=== PATIENT | female | born 1985 | race Caucasian/White ===

== ENCOUNTER 2017-01-21 23:02 | Emergency (ER) | payer MEDICAID ==
[2017-01-21 23:02] VITALS: BMI 39.9
[2017-01-21 23:27] VITALS: BP 149/90; PULSE 82; RESP 16; TEMP 97.7; O2SAT 97
[2017-01-22 00:26] LABS: RBC URINE 12 /hpf (0-3); URINE BACTERIA RARE (<OCC); URINE BILIRUBIN NEGATIVE (NEGATIVE); URINE BLOOD 1+ (NEGATIVE); URINE COLOR Yellow (YELLOW); URINE GLUCOSE (UA) NORMAL (Normal); URINE KETONE NEGATIVE (NEGATIVE); URINE LEUKOCYTE ESTERASE NEG Leu/uL (Negative); URINE PROTEIN 1+ mg/dL (NEGATIVE); URINE UROBILINOGEN NORMAL mg/dL (0.2-1.0); WBC URINE 1 /hpf (0-5)
--- NOTE | 2017-01-22 00:56 | C.PDOC ---
History Of Present Illness 31 year old female with a Hx of cholecystectomy 5 years ago presents to the ER with a complaint of RUQ and LLQ pain that began today. Patient andrew reported that LMP was 1.5 years ago and took multiple home results with different results. Pt is requesting repeat test. Denies nausea or vomiting, diarrhea, vaginal bleeding, discharge or dysuria . Time Seen by Provider: 01/21/17 23:35 Chief Complaint (Nursing): Abdominal Pain History Per: Patient History/Exam Limitations: no limitations Onset/Duration Of Symptoms: Hrs Current Symptoms Are (Timing): Still Present Location Of Pain/Discomfort: RUQ, LLQ Radiation Of Pain To:: None Quality Of Discomfort: Unable To Describe Associated Symptoms: denies: Fever, Chills, Nausea, Vomiting Exacerbating Factors: None Alleviating Factors: None Recent travel outside of the [place]: No Abnormal Vaginal Bleeding: No Past Medical History Reviewed: Historical Data, Nursing Documentation, Vital Signs Vital Signs: Last Vital Signs Temp 97.7 F 01/21/17 23:23 Pulse 82 01/21/17 23:23 Resp 16 01/21/17 23:23 BP 149/90 01/21/17 23:23 Pulse Ox 97 01/22/17 04:22 - Medical History PMH: Anxiety, Depression Surgical History: Cholecystectomy - [facility] Procedures INJECT/INFUSE NEC (08/17/13) Family History: States: Unknown Family Hx - Social History Hx Tobacco Use: Yes (2-4 per day) Hx Alcohol Use: Yes Hx Substance Use: No - Immunization History Hx Tetanus Toxoid Vaccination: No Hx Influenza Vaccination: No Hx Pneumococcal Vaccination: No Review Of Systems Constitutional: Negative for: Fever, Chills Gastrointestinal: Positive for: Abdominal Pain. Negative for: Nausea, Vomiting Physical Exam - Physical Exam Appears: Non-toxic, No Acute Distress Skin: Normal Color, Warm, Dry Head: Atraumatic, Normacephalic Eye(s): bilateral: Normal Inspection, EOMI Ear(s): Bilateral: Normal Oral Mucosa: Moist Chest: Symmetrical Cardiovascular: Rhythm Regular Respiratory: Normal Breath Sounds, No Rales, No Rhonchi, No Wheezing Gastrointestinal/Abdominal: Soft, No Tenderness, Other (Obese. No scars visualized.) Neurological/Psych: Oriented x3, Normal Speech, Normal Cognition ED Course And Treatment O2 Sat by Pulse Oximetry: 97 (Room air) Pulse Ox Interpretation: Normal Progress Note: Patient is requesting a full workup since she does not having a PMD. Patient instructed to take OTC medication as needed for pain and to follow up with clinic for further evaluation. Disposition Counseled Patient/Family Regarding: Diagnosis, Need For Followup - Disposition Referrals: [facility] [Outside] [facility] [Outside] [facility] [Outside] Disposition: HOME/ ROUTINE Disposition Time: 00:53 Condition: STABLE Additional Instructions: Please follow up in clinic Tylenol and motrin for pain Return to ER if worse Instructions: Pel[facility] Women (ED) Forms: [facility] ([place]an) - Clinical Impression Clinical Impression: Pain pelvic - Scribe Statement The provider has reviewed the documentation as recorded by the Scribronny Raymundo All medical record entries made by the Scribe were at my direction and personally dictated by me. I have reviewed the chart and agree that the record accurately reflects my personal performance of the history, physical exam, medical decision making, and the department course for this patient. I have also personally directed, reviewed, and agree with the discharge instructions and disposition.
== END 2017-01-22 00:59 | disposition home or self-care (01) ==
LOC: C.ER 23:02
DX: R10.2 Pelvic and perineal pain (principal)

== ENCOUNTER 2017-08-06 19:26 | Emergency (ER) | payer MEDICAID ==
[2017-08-06 19:26] VITALS: BMI 39.9
[2017-08-06 19:37] VITALS: BP 141/92; PULSE 111; RESP 18; TEMP 98.9; O2SAT 96
== END 2017-08-06 20:24 | disposition left against medical advice (07) ==
LOC: C.ER 19:26 → SUPCPDRO 19:26 → C.ER 20:24
DX: Z02.89 Encounter for other administrative examinations (principal); I10 Essential (primary) hypertension